=== PATIENT | male | born 1980 | race Caucasian/White ===

== ENCOUNTER 2022-06-03 08:17 | Emergency (ER) | payer OTHER, SELFPAY ==
[2022-06-03 08:19] VITALS: BP 152/102; PULSE 85; RESP 18; TEMP 36.7; O2SAT 99
--- NOTE | 2022-06-03 09:56 | ED.NECK ---
HPI - Neck Pain/Injury General Chief Complaint: Neck Pain/Injury Stated Complaint: pinched nerve - neck pain Time Seen by Provider: 06/03/22 09:17 Source: patient Mode of arrival: ambulatory Limitations: no limitations History of Present Illness HPI Narrative: This is a 41-year-old male that presents the emergency department for neck pain ongoing over the last 2 days. Reports neck pain and stiffness. Pain is worse with movement and relieved with rest. He tried taking Aleve last night with little relief. No recent injuries or trauma. He does report he does some heavy lifting. Reports with certain movements the pain shoots down his left arm. Denies weakness or numbness. Related Data Allergies Allergy/AdvReac Type Severity Reaction Status Date / Time No Known Allergies Allergy Verified 06/03/22 09:19 Review of Systems Review of Systems: CONSTITUTIONAL: Denies fever SKIN: Denies rash MUSCULOSKELETAL: Reports joint pain, and myalgia. NEUROLOGIC: Denies numbness, or weakness. All systems reviewed & are unremarkable except as noted in HPI and below PMFSH Past Medical History Medical History (Updated 06/03/22 @ 10:56 by Nuvia Machado PA-C) No active medical problems Social History Social History (Updated 06/03/22 @ 10:02 by Nuvia Machado PA-C) Smoking status: Never smoker Substance use: never Exam Narrative: GENERAL: Well-appearing, well-nourished, and in no acute distress. HEAD: Normocephalic, atraumatic. EYES: EOMI. NECK: Supple. No adenopathy or masses. Tender to palpation of left trapezius musculature CHEST: Clear to auscultation. No respiratory distress. No wheezes rales or rhonchi HEART: Regular rate and rhythm. No murmur heard. Normal peripheral pulses. EXTREMITIES: Normal range of motion. No edema. Strength equal in bilateral upper extremities (5/5) SKIN: Warm, dry, no rash. NEURO: No focal deficits. Alert and oriented x3. PSYCH: Normal mood and affect Course Course Emergency Course: Patient agrees with plan of care and will obtain follow-up with a primary provider at the [facility] Vital Signs Vital signs: Vital Signs Temperature 98.0 F 06/03/22 08:19 Pulse Rate 85 06/03/22 08:19 Respiratory Rate 18 06/03/22 08:19 Blood Pressure 152/102 H 06/03/22 08:19 Pulse Oximetry 99 06/03/22 08:19 Oxygen Delivery Room Air 06/03/22 08:19 Temperature 98.0 F 06/03/22 08:19 Pulse Rate 85 06/03/22 08:19 Respiratory Rate 18 06/03/22 08:19 Blood Pressure 152/102 H 06/03/22 08:19 Pulse Oximetry 99 06/03/22 08:19 Oxygen Delivery Room Air 06/03/22 08:19 MDM - Neck Pain/Injury MDM Narrative Medical decision making narrative: Patient presents to the emergency department for neck pain ongoing over the last couple of days. No recent injuries or trauma. He is neurovascularly intact. Reports intermittent shooting pain on the left side of the neck and into the arm. Worse with movement. Relieved with rest. He is afebrile and nontoxic-appearing. Refused any imaging or further workup at this time. Reports improvement with Valium, Tylenol, and Toradol. Instructed that he should get established with a primary provider for further follow-up. Will be given muscle relaxer and steroid taper and was instructed to alternate Tylenol and Ibuprofen. He was given warnings to return to the ER Differential Diagnosis Differential diagnosis: Likely disc disorder of cervical region, cervical radiculopathy, cervical spondylosis and strain of neck muscle Critical Care Time Critical Care Time Critical Care Time: No Discharge Plan Discharge Clinical Impression: Acute neck pain Patient Disposition: Home, Self-Care Condition: Stable Instructions: Cervical Radiculopathy (ED), Neck Pain (ED) Additional Instructions: Return to the ER if you experience fever, visual changes, vomiting, weakness, numbness, or any other symptoms that are concerning to you Rest, use ice/heat, t
[2022-06-03] MEDS: ACETAMINOPHEN 500 MG TABLET 1000 MG PO (10:01)
[2022-06-03] MEDS: KETOROLAC 30 MG/ML VIAL (*BKC) IM (10:02)
[2022-06-03] MEDS: diazePAM (*CRX) 5 MG TABLET PO (10:02)
[2022-06-03 11:28] VITALS: RESP 16
== END 2022-06-03 11:28 | disposition home or self-care (01) ==
PROVIDERS: Emergency Provider Physician Assistant
DX: M54.2 Cervicalgia (principal)
CPT/HCPCS: 96372; 99283; A9270; J1885